=== PATIENT | male | born 1980 | race Caucasian/White ===

== ENCOUNTER 2019-04-12 19:44 | Emergency (ER) | payer SELFPAY ==
[~2019-04-12] VITALS: Ht 182.9 cm; Wt 72.6 kg
[~2019-04-12 19:44] MED LIST: ACHD5005 PO; AMOX400T12; CYCL10TA9 PO; DICL75TA2 PO; HYDR-3714; HYDR1CAP2 PO; HYDR1TAB PO; HYDR50CA3 PO; KETO-22 PO; KETO10PO3 MC; KETO15CR2 TP; NAPR-243 PO; QTP200T PO; RANI-10 PO; SULF1TAB35 PO; SULF1TAB38 PO; TRM50T PO; [UNRECOGNIZED DRUG - REMARK]
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
--- NOTE | 2019-04-12 20:17 | Diagnostic Imaging Report ---
EXAM: Ankle, right, 3 views. INDICATION: Right ankle trauma and pain. COMPARISON: 06/21/2011. FINDINGS: No fracture or malalignment. No suspicious osteoblastic or lytic lesions. Normal soft tissue shadows. IMPRESSION: Negative right ankle radiographs. Dictated by: Dictated on workstation # [id number]
[2019-04-12 20:47] VITALS: BP 140/89
== END 2019-04-12 20:45 | disposition home or self-care (01) ==
LOC: EDUNIT# 19:44 → ER 19:47
DX: M25.571 Pain in right ankle and joints of right foot (principal); Z93.0 Tracheostomy status; X50.1XXA Overexertion from prolonged static or awkward postures, initial encounter
CPT/HCPCS: 73610

== ENCOUNTER 2019-04-15 22:28 | Emergency (ER) | payer SELFPAY ==
[~2019-04-15] VITALS: Ht 180.3 cm; Wt 74.8 kg
[2019-04-15] MEDS ORDERED: ACETAMINOPHEN 325 MG TABLET ONE (22:32)
[2019-04-15 22:45] VITALS: BP 132/88
[2019-04-16] MEDS ORDERED: ACETAMINOPHEN 325 MG TABLET PO ONE (03:15)
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
== END 2019-04-15 22:45 | disposition home or self-care (01) ==
LOC: ER 22:28 → EDUNIT# 22:28 → ER 22:45
DX: S93.491A Sprain of other ligament of right ankle, initial encounter (principal); F17.210 Nicotine dependence, cigarettes, uncomplicated; Z93.0 Tracheostomy status; X50.1XXA Overexertion from prolonged static or awkward postures, initial encounter; Y93.01 Activity, walking, marching and hiking
CPT/HCPCS: 99283